=== PATIENT | female | born 1950 | race African-American/Black ===

== ENCOUNTER 2019-07-10 10:39 | Inpatient (IN) | payer MEDICARE, OTHER ==
[~2019-07-10] VITALS: Ht 167.6 cm; Wt 109.3 kg
--- OUTSIDE RECORDS SUMMARY | 2019-07-10 10:41 | XMS REPORT ---
Author Author [facility] Address Unknown Phone Unavailable Care Team Providers Care Medical Assistant Per Diem Name Role Phone CANDIDA MCCOY Unavailable Unavailable Problems This patient has no known problems. Allergies, Adverse Reactions, Alerts This patient has no known allergies or adverse reactions. Medications This patient has no known medications. Results Test Description Test Time Test Comments Text Results Atomic Results Result Comments TISSUE EXAM 2018-07-31 16:08:00 Surgical Pathology Report Case: [id number] Authorizing Provider: Leon Mccoy, Collected: 07/25/2018 0925 Ordering Location: [facility] PERI[facility] Received: 07/25/2018 1006 SERVICES Pathologist: Andi Clark MD Specimen: Thyroid, Total Thyroid - Stitch Bradshaw Right Middle THYROID, TOTAL THYROIDECTOMY: - NODULAR HYPERPLASIA - FOCAL FIBROSIS, CALCIFICATION AND HEMORRHAGE - ONE BENIGN LYMPH NODE IDENTIFIED (0/1) Signing Pathologist Direct Phone Line: [phone] signed by Andi Clark MD on 07/31/2018 at 4:08 [id number], [id number] multinodular goiterTotal thyroid The specimen is received fresh labeled with the patient's information and labeled "total thyroid" and consists of a 17 gm total thyroidectomy with a suture designating the right lobe. The right lobe measures 5.5 x 3 x 1.5 cm. The left lobe measures 6 x 4 x 2 cm, and isthmus measures 1.8 x 2.5 x 0.8 cm.Ink code: Right anterior-red, isthmus anterior-green, left anterior-blue, deep-black.Specimen is serially sectioned from superior to inferior showing a multinodular cut surface throughout the entire specimen. The largest nodule of the entire thyroidectomy measures up to 1 cm in greatest dimension. The right lobe has a superior calcified nodule measuring 1 cm in greatest dimension. The remaining nodules are johnson and hemorrhagic. The calcified nodule is grossly at or near the deep inked surface.Section code: Specimen is entirely submitted as follows: A1-A3, entire calcified nodule submitted for light decal; A4-A11, remainder of right lobe superior to inferior (A4 and A5 one contiguous section, A6 and 7 one contiguous section, A8 and A9 one contiguous section, A10 and 11 one contiguous section); A12, entire isthmus bisected; A13- A245, left lobe superior to inferior (A15 and 16 one contiguous section, A17 and 18 one contiguous section, A19 and 20 one contiguous section, A21 and A22 one contiguous section; A23 and 24 one contiguous section). CG/ewPerformed PTH, INTACT 2018-07-25 10:58:00 PARATHYROID HORMONE INTACT (BEAKER) (test uhwu=319) 85.8 pg/mL 8.5-72.5 [id number] 10:47:00* Test Item Value Reference Range Comments CALCIUM (BEAKER) (test iokp=135) 9.2 mg/dL 8.4-10.2 CBC W/PLT COUNT & AUTO [id number] 08:55:00* Test Item Value Reference Range Comments WHITE BLOOD CELL COUNT (BEAKER) (test tuzu=536) 5.9 K/ L 3.5-10.5 RED BLOOD CELL COUNT (BEAKER) (test srkf=219) 4.09 M/ L 3.93-5.22 HEMOGLOBIN (BEAKER) (test udbg=506) 11.9 GM/DL 11.2-15.7 HEMATOCRIT (BEAKER) (test xelp=673) 37.1 % 34.1-44.9 MEAN CORPUSCULAR VOLUME (BEAKER) (test tgco=479) 90.7 fL 79.4-94.8 MEAN CORPUSCULAR HEMOGLOBIN (BEAKER) (test yrrg=869) 29.1 pg 25.6-32.2 MEAN CORPUSCULAR HEMOGLOBIN CONC (BEAKER) (test fhpv=219) 32.1 GM/DL 32.2-35.5 RED CELL DISTRIBUTION WIDTH (BEAKER) (test hhdl=698) 13.0 % 11.7-14.4 PLATELET COUNT (BEAKER) (test nzmx=003) 307 K/CU MM 150-450 MEAN PLATELET VOLUME (BEAKER) (test bywm=874) 10.4 fL 9.4-12.3 NUCLEATED RED BLOOD CELLS (BEAKER) (test qeir=271) 0 /100 WBC 0-0 NEUTROPHILS RELATIVE PERCENT (BEAKER) (test eogi=939) 66 % LYMPHOCYTES RELATIVE PERCENT (BEAKER) (test dumy=292) 22 % MONOCYTES RELATIVE PERCENT (BEAKER) (test chos=679) 7 % EOSINOPHILS RELATIVE PERCENT (BEAKER) (test mwrk=751) 4 % BASOPHILS RELATIVE PERCENT (BEAKER) (test fvyd=162) 1 % NEUTROPHILS ABSOLUTE COUNT (BEAKER) (test pcuq=288) 3.84 K/ L 1.56-6.13 LYMPHOCYTES ABSOLUTE COUNT (BEAKER) (test znfu=748) 1.28 K/ L 1.18-3.74 MONOCYTES ABSOLUTE COUNT (BEAKER) (test uonu=102) 0.42 K/ L 0.24-0.36 EOSINOPHILS ABSOLUTE COUNT (BEAKER) (test olvi=022) 0.25 K/ L 0.04-0.36 BASOPHILS ABSOLUTE COUNT (BEAKER) (test byjc=708) 0.04 K/ L 0.01-0.08 IMMATURE GRANULOCYTES-RELATIVE PERCENT (BEAKER) (test cyta=5287) 0 % 0-1 POCT-GLUCOSE [id number] 07:58:00* Test Item Value Reference Range Comments POC-GLUCOSE METER (BEAKER) (test pitm=4852) 128 mg/dL 70-[address] [facility] [address] [address]
[2019-07-10] MEDS ORDERED: PREDNISONE 20 MG TAB PO ONE (11:00)
[2019-07-10] MEDS ORDERED: ALBUTEROL/IPRATROPIUM 3 ML NEB NEB ONE (11:00)
[2019-07-10] MEDS ORDERED: LEVOTHYROXINE175 MCG (11:07)
[2019-07-10] MEDS ORDERED: ROSUVASTATIN CAL5 MG (11:07)
[2019-07-10] MEDS ORDERED: TOPIRAMATE25 MG (11:07)
[2019-07-10] MEDS ORDERED: AMLOD-VALSA-HC1 EAC2 (11:07)
[2019-07-10] MEDS ORDERED: VICTOZA 3-0.6 MG/0.1 (11:07)
[2019-07-10] MEDS ORDERED: DULOXETINE HCL60 MG (11:07)
[2019-07-10] MEDS ORDERED: GABAPENTIN300 MG (11:07)
[2019-07-10] MEDS ORDERED: ELIQUIS5 MG (11:07)
[2019-07-10] MEDS ORDERED: LANSOPRAZOLE30 MG (11:07)
[2019-07-10] MEDS ORDERED: LEVOTHYROXINE125 MCG (11:07)
--- NOTE | 2019-07-10 11:08 | NUR ---
medications reviewed with pt
[2019-07-10 11:15] LABS: BASOPHILS % 0.1 % (0.0-1.0); HEMOGLOBIN 13.4 g/dL (12.0-16.0); LYMPHOCYTES # (AUTO) 0.7 (1.0-3.2); LYMPHOCYTES % 6.5 % (18.0-39.1); MEAN CORPUSCULAR HEMOGLOBIN 28.8 pg (28-32); MEAN CORPUSCULAR HGB CONC 32.7 g/dL (31-35); MONOCYTES # (AUTO) 0.7 (0.2-0.8); MONOCYTES % 6.4 % (4.4-11.3); NEUTROPHILS # (AUTO) 9.3 (2.1-6.9); NEUTROPHILS % 86.3 % (38.7-80.0); PLATELET COUNT 250 x10e3/uL (140-360); RED BLOOD COUNT 4.66 x10e6/uL (3.6-5.1); RED CELL DISTRIBUTION WIDTH 13.3 % (11.7-14.4)
[2019-07-10 11:29] LABS: ALBUMIN 3.3 g/dL (3.5-5.0); ALBUMIN/GLOBULIN RATIO 0.8 (0.8-2.0); ANION GAP 17.9 mmol/L (8-16); CALCIUM 9.1 mg/dL (8.4-10.2); CREATININE, SERUM 2.65 mg/dL (0.57-1.11); INR 1.11; MAGNESIUM 1.6 MG/DL (1.3-2.1); PROTHROMBIN TIME 14.8 seconds (11.9-14.5)
[2019-07-10 11:30] LABS: PARTIAL THROMBOPLASTIN TIME 34.9 seconds (23.8-35.5)
--- NOTE | 2019-07-10 11:33 | NUR ---
lab called stating pt is flu a +; james khan notified
[2019-07-10 11:34] LABS: POTASSIUM 2.9 mmol/L (3.5-5.1)
[2019-07-10] MEDS ORDERED: POTASSIUM CHLORIDE 20 MEQ TAB CR PO STA (11:35)
--- NOTE | 2019-07-10 11:35 | NUR ---
adam called stating pt k is 2.9; james khan notified
[2019-07-10 11:36] LABS: CREATINE KINASE MB 3.3 ng/mL (0-5.0)
--- NOTE | 2019-07-10 11:48 | Diagnostic Imaging Report ---
EXAMINATION: Head CT HISTORY: Status post fall the night before, patient on anticoagulation, evaluate for intracranial bleed. Weakness COMPARISON: None. TECHNIQUE: Multidetector axial images were obtained without contrast from the foramen magnum to the vertex . The images were reconstructed using brain and bone algorithms. Thin section brain images were reformatted into coronal and sagittal planes. Image quality: Motion/streaking artifact limits the evaluation of the skull base and posterior cranial fossa. Dose modulation, iterative reconstruction, and/or weight based adjustment of the mA/kV was utilized to reduce the radiation dose to as low as reasonably achievable. FINDINGS: Parenchyma: 1. No abnormal densities. 2. No mass or hemorrhage. No CT evidence of acute territorial vascular insult. Extra-axial spaces:No abnormal density. No extra-axial fluid collections . Left anterior frontal convexity approximately 2 cm calcification may correspond to left frontal bone exostoses versus a calcified meningioma with minimal mass effect upon the underlying left anterior frontal lobe, without abnormal density of the underlying brain parenchyma, unlikely to explain the patient's symptoms. Brain volume: Normal for age. Ventricles: No hydrocephalus or displacement. Arteries: No density suggestive of thrombus. Dural sinuses: No abnormal density. Extra-axial spaces: No abnormal density. Foramen magnum: No mass, Chiari malformation, or basilar invagination. Sella: No obvious mass. Paranasal/mastoid sinuses: Imaged portions unremarkable. Skull/Scalp: No lytic or blastic lesions. No fractures. IMPRESSION: 1. No acute post traumatic intracranial abnormalities, particularly no hemorrhage. 2. Incidentally noted left frontal calcification as detail above. Comparison to prior studies if available is recommended. Signed by: Dr. Amaya Rincon M.D. on 07/10/2019 11:45 AM
[2019-07-10] MEDS ORDERED: SODIUM CHLORIDE 0.9% 1000ML 1,000 ML IV STA ×2 (11:50→11:51)
[2019-07-10] MEDS ORDERED: SODIUM CHLORIDE 0.9% 1000ML 1,000 ML IV ONE (12:00)
[2019-07-10] MEDS ORDERED: POTASSIUM CHLORIDE 10MEQ/100ML 200 ML IV ONE (12:00)
--- NOTE | 2019-07-10 12:03 | Diagnostic Imaging Report ---
EXAMINATION: CHEST SINGLE (PORTABLE) INDICATION: Fall, weakness COMPARISON: None FINDINGS: LINES/TUBES:EKG leads overlie the chest. LUNGS:The lungs are moderately inflated. No focal consolidation or pulmonary edema. PLEURA:No pleural effusion or pneumothorax. MEDIASTINUM:The cardiomediastinal silhouette appears normal in size and shape. BONES/SOFT TISSUES:No acute osseous injury. ABDOMEN:No free air under the diaphragm. IMPRESSION: No focal pneumonia or pulmonary edema. Signed by: Araceli Beckwith MD on 07/10/2019 11:59 AM
[2019-07-10 12:10] LABS: BILIRUBIN,URINE MODERATE (NEGATIVE); CLARITY,URINE CLOUDY (CLEAR); COLOR,URINE YELLOW (YELLOW); KETONES,URINE TRACE (NEGATIVE); LEUKOCYTE ESTERASE ,URINE SMALL (NEGATIVE); NITRITE,URINE NEGATIVE (NEGATIVE); PROTEIN,URINE DIPSTICK 2+ (NEGATIVE); URINE UROBILINOGEN 1 mg/dL (0.2 - 1)
[2019-07-10] MEDS ORDERED: ONDANSETRON HCL INJ 2MG/ML 2ML 2 MG/ML VIAL IV PRN ×2 (12:15→14:00)
[2019-07-10] MEDS ORDERED: ACETAMINOPHEN 325 MG TAB PO PRN ×2 (12:15→14:00)
[2019-07-10] MEDS ORDERED: SODIUM CHLORIDE 0.9% 1000ML 1,000 ML IV SCH (12:15)
[2019-07-10 12:16] LABS: BACTERIA,URINE MANY /HPF; EPITHELIAL CELLS,URINE MANY /LPF; WBC,URINE (MAN) >50 /HPF (0-5); YEAST,URINE MANY
[2019-07-10] MEDS ORDERED: OSELTAMIVIR PHOSPHATE 75 MG CAP PO SCH (12:30)
[2019-07-10] MEDS ORDERED: CEFTRIAXONE SOD 1 GM/NS 50 ML 50 ML IV SCH ×2 (12:45→14:00)
[2019-07-10 13:15] VITALS: BP 130/62
[2019-07-10 13:30] VITALS: BP 130/62
--- NOTE | 2019-07-10 13:30 | NUR ---
Pt received from ER at this time. Pt is aox4 and able to ambulate with moderate assist. Pt denies any pain at this time. 0 s/s of acute distress noted. Pt is currently receiving IVF with a K rider and well tolerated. Skin is intact.
[2019-07-10] MEDS: METOPROLOL TARTRATE 25 MG TAB PO SCH ×3 (13:57→21:14)
[2019-07-10] MEDS: APIXABAN 5 MG TABLET PO SCH ×3 (13:57→21:00)
[2019-07-10 15:16] LABS: ANION GAP 15.1 mmol/L (8-16); CALCIUM 8.6 mg/dL (8.4-10.2); CREATININE, SERUM 2.27 mg/dL (0.57-1.11); POTASSIUM 3.1 mmol/L (3.5-5.1)
[2019-07-10 15:41] LABS: CREATINE KINASE MB 6.6 ng/mL (0-5.0)
[2019-07-10 16:00] VITALS: BP 113/59
[2019-07-10] MEDS: SODIUM CHLORIDE 0.9% 1000ML 1,000 ML IV SCH (16:18)
[2019-07-10] MEDS ORDERED: APIXABAN 5 MG TABLET PO SCH (17:00)
[2019-07-10] MEDS ORDERED: METOPROLOL TARTRATE 25 MG TAB PO SCH ×2 (17:00)
--- NOTE | 2019-07-10 17:10 | NUR ---
Called Dr. Roman to report labs results and states he will call me right back.
--- NOTE | 2019-07-10 18:13 | History and Physical ---
PRIMARY CARE PHYSICIAN: Dr. Micah Engle at [facility]. CHIEF COMPLAINT: Generalized weakness, nausea, vomiting, and fatigue. HISTORY OF PRESENT ILLNESS: This is a 68-year-old female with past medical history of hypertension, atrial fibrillation, high cholesterol, and hypothyroidism. She reports that symptoms initially started 2 days ago, feeling fatigue, generalized weakness, dizziness, nausea with no vomiting, cough productive with body aches. All are flu-like symptoms. 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 Today, she continued to worsen, she has to be wheeled into the exam room, as she was unable to walk. According to the patient, she had a fall last night, did not hit her head. PAST MEDICAL HISTORY: 1. Atrial fibrillation. 2. Hypertension. 3. Hypothyroidism. 4. High cholesterol. 5. Neuropathy of the lower extremities. PAST SURGICAL HISTORY: 1. She reports thyroidectomy. 2. x2 and tonsillectomy. FAMILY MEDICAL HISTORY: Mother had hypertension and father had heart attack. SOCIAL HISTORY: She denies any tobacco, alcohol, or drug use. 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 ALLERGIES: SHE HAS NO KNOWN ALLERGIES. REVIEW OF SYSTEMS: GENERAL: Fatigue, body aches, and general weakness. HEENT: No vision changes. LUNGS: Shortness of breath and productive cough. HEART: Palpitations and dizziness. GI: Nausea with no vomiting and complains of diarrhea. NEURO: Dizziness and generalized weakness. MUSCULOSKELETAL: Moves all extremities, but is weak and body aches. SKIN: Dry. PHYSICAL EXAMINATION: VITAL SIGNS: Temperature 99.0, pulse is 95, respirations 18, blood pressure 126/57, and pulse ox is 100% on 2 L. GENERAL: Fatigue and generalized weakness. HEENT: Normocephalic and atraumatic. NECK: Supple. LUNGS: Decreased breath sounds with some crackles. CARDIOVASCULAR: Tachycardic. GI: Soft and nontender. NEUROLOGIC: Alert, awake, and oriented x3. MUSCULOSKELETAL: Moves all extremities. No edema. SKIN: Dry. PSYCH: Able, calm. LABORATORY DATA: WBC is 10.82, hemoglobin is 13.4, hematocrit is 41.0, and platelet is 250. Sodium is 133, potassium is 2.9, CO2 is 18, creatinine is 2.65, estimated GFR is 18, and glucose is 240. AST is 50. Creatine kinase is 1104. Troponin 0.293. BNP is 81. Magnesium is 1.6. PT 14.8, INR 1.11, and APTT 34.9. Urine cloudy with 2+ protein, trace ketones, small leukocyte esterase with greater than 50,000 wbc's, many bacteria and yeast. Influenza is positive for flu A. IMAGING DATA: CT brain, no acute abnormalities. Chest x-ray, no pneumonia or pulmonary edema noted. IMPRESSION AND PLAN: 1. Influenza A positive. We will continue with IV fluids, Tamiflu started. Neb treatment. We will continue with supportive treatment. 2. Pyuria, likely urinary tract infection. UA noted. We will await on urine cultures. We will start on Rocephin until final cultures come back. 3. Hypokalemia with a potassium of 2.9. Replace and recheck. Magnesium level was 1.6. 4. Dehydration due to poor p.o. intake. Sodium is 133. We will continue with aggressive IV fluid hydration. 5. Acute kidney injury with history of chronic kidney disease. Creatinine is 2.65, was given bolus NS. We will continue with NS 100 mL/h and recheck BMP in a.m. 6. Rhabdomyolysis with a CK of 1104. We will continue with IV fluid hydration and rest. We will continue to trend CK levels. 7. Tachycardia with a history of atrial fibrillation. We will continue Eliquis 5 mg b.i.d. We will start on metoprolol 25 mg p.o. b.i.d. 8. Hypertension, currently stable. We will hold her home dose of Norvasc and HCTZ. 9. Hypothyroidism. We will continue on levothyroxine. 10. History of high cholesterol. We will continue with statin. 11. Deep venous thrombosis prophylaxis. We will continue with Eliquis. Plan is to continue with supportive therapy, IV fluids, Tamiflu, Tylenol p.r.n. for fever, and rest as needed. Further recommendations to follow. Dictated by SAMREEN Murphy Sherin Roman MD MY/MODL /[id number] Seen and examined on 07/10/2019, updated PCP Dr. Engle. Agree with the findings and plan as documented by SAMREEN Sanchez. DYLAN
--- NOTE | 2019-07-10 19:00 | NUR ---
BEDSIDE SHIFT REPORT GIVEN TO THE COURT MONITOR RN. PT DENIED FURTHER NEEDS.
[2019-07-10 20:00] VITALS: BP 98/53
[2019-07-10 20:40] VITALS: BP 98/53
--- NOTE | 2019-07-10 20:40 | NUR ---
PATIENT RESTING IN BED BOTH EYES CLOSED, NO SIGNS OF RESPIRATORY DISTRESS NOTED. IV FLUIDS ARE RUNNING AT ORDERED RATE AND TELE MONITOR IS ATTACHED AND RUNNING AT NORMAL SINUS RHYTHM. BED IS LOCKED AND IN LOWEST POSITION POSSIBLE, BOTH SIDE RAILS ARE UP, CALL LIGHT WITHIN EASY REACH, WILL CONTINUE TO MONITOR.
[2019-07-10] MEDS: CEFTRIAXONE SOD 1 GM/NS 50 ML 50 ML IV SCH (20:45)
[2019-07-10] MEDS: ATORVASTATIN 10 MG TAB PO SCH (20:45)
[2019-07-10] MEDS: OSELTAMIVIR PHOSPHATE 75 MG CAP PO SCH (20:45)
[2019-07-11] VITALS (8 sets, daily range): BP systolic 105–126; BP diastolic 56–62
[2019-07-11] MEDS: SODIUM CHLORIDE 0.9% 1000ML 1,000 ML IV SCH ×3 (04:45→16:27)
[2019-07-11 05:39] LABS: BASOPHILS % 0.2 % (0.0-1.0); HEMATOCRIT 37.6 % (34.2-44.1); HEMOGLOBIN 12.1 g/dL (12.0-16.0); LYMPHOCYTES % 10.5 % (18.0-39.1); MEAN CORPUSCULAR HEMOGLOBIN 28.7 pg (28-32); MEAN CORPUSCULAR HGB CONC 32.2 g/dL (31-35); MEAN CORPUSCULAR VOLUME 89.3 fL (81-99); MONOCYTES # (AUTO) 0.6 (0.2-0.8); MONOCYTES % 5.5 % (4.4-11.3); NEUTROPHILS # (AUTO) 8.2 (2.1-6.9); NEUTROPHILS % 82.7 % (38.7-80.0); PLATELET COUNT 220 x10e3/uL (140-360); RED BLOOD COUNT 4.21 x10e6/uL (3.6-5.1); RED CELL DISTRIBUTION WIDTH 13.3 % (11.7-14.4)
[2019-07-11] MEDS ORDERED: LEVOTHYROXINE SODIUM 125 MCG TAB PO SCH (06:00)
[2019-07-11 06:02] LABS: ANION GAP 12.8 mmol/L (8-16); CREATININE, SERUM 1.85 mg/dL (0.57-1.11); POTASSIUM 3.8 mmol/L (3.5-5.1)
[2019-07-11] MEDS: LEVOTHYROXINE SODIUM 125 MCG TAB PO SCH (06:38)
--- NOTE | 2019-07-11 07:00 | NUR ---
BEDSIDE SHIFT REPORT RECEIVED FROM THE [employer] SWEATER OPERATOR RN. EDUCATED PT ABOUT FALL PRECAUTIONS. CALL LIGHT WITH IN EASY REACH. INSTRUCTED PT TO USE CALL LIGHT FOR ALL THE NEEDS. PT VERBALIZED UNDERSTANDING. BED IS LOW AND LOCKED. SIDE RAILS X2. PT DENIES NEEDS AT THIS TIME.
[2019-07-11] MEDS: OSELTAMIVIR PHOSPHATE 75 MG CAP PO SCH ×2 (09:11→21:55)
[2019-07-11] MEDS: APIXABAN 5 MG TABLET PO SCH ×2 (09:11→16:27)
[2019-07-11] MEDS: METOPROLOL TARTRATE 25 MG TAB PO SCH ×2 (11:42→16:25)
[2019-07-11] MEDS ORDERED: ONDANSETRON HCL 4 MG ORAL DISINTEGRATING TAB PO PRN (16:30)
--- NOTE | 2019-07-11 17:29 | Progress Note ---
DATE: 07/11/2019 CONSULT: None. CHIEF COMPLAINT: Generalized weakness, nausea, vomiting, and cough. SUBJECTIVE: The patient reports she is feeling little bit better overall. Denies any nausea, vomiting, shortness of breath, fever, diarrhea. She still reports body aches and dizziness when getting up, but overall improving. PHYSICAL EXAMINATION: VITAL SIGNS: Temperature is 95.9, pulse 64, respirations 18, blood pressure 123/59, and pulse ox is 98% on room air. GENERAL: No acute distress, fatigue, and generalized weakness. HEENT: Normocephalic, atraumatic. NECK: Supple. LUNGS: Decreased breath sounds. CARDIOVASCULAR: Regular rate and rhythm. GI: Soft and nontender. NEUROLOGIC: Alert, awake, and oriented x3. MUSCULOSKELETAL: Moves all extremities. EXTREMITIES: No edema. SKIN: Dry. PSYCH: Calm. LABORATORY DATA: WBC 9.91, hemoglobin 12.1, hematocrit 37.6, platelets 220. Sodium is 137, potassium 3.8, CO2 of 22, creatinine is 1.85. Estimated GFR is 33. CK is 1734. MICROBIOLOGY: Blood cultures have been negative so far. Urine culture is positive for gram-negative rods. IMPRESSION: 1. Influenza A positive. Continue Tamiflu, supportive care with IV fluids and Tylenol for fever. 2. Urinary tract infection. Urine culture positive for gram-negative rods. We will continue with Rocephin until final cultures come back. 3. Hypokalemia, now resolved. 4. Acute kidney injury with history of chronic kidney disease. Likely due to dehydration and poor p.o. intake. Improving with IV fluids. 5. Dehydration. Likely due to poor p.o. intake and fever, nausea, vomiting, and diarrhea. Diarrhea and nausea and resolved. We will continue with IV fluids. 6. Rhabdomyolysis. Likely due to dehydration. CK is 1730. We will continue with aggressive IV fluid hydration and trend CK. 7. Hypertension, currently stable. We will continue to hold Norvasc and HCTZ and continue beta blockers. 8. Hypothyroidism. We will continue levothyroxine. 9. History of hyperlipidemia. We will continue on statin. 10. Deep vein thrombosis prophylaxis. We will continue on Eliquis. 11. History of atrial fibrillation. We will continue on metoprolol and Eliquis for CVA prophylaxis. Dictated by Ca Sanchez, SAMREEN Radhaching MD [facility]/MODL /[id number] Seen and examined on 07/11/19. Agree with the findings and plan as documented by SAMREEN Sanchez. LAITHD
--- NOTE | 2019-07-11 19:00 | NUR ---
BEDSIDE SHIFT REPORT GIVEN TO THE MANAGER TRAINING AND DEVELOPMENT RN. PT DENIED FURTHER NEEDS.
[2019-07-11] MEDS: ATORVASTATIN 10 MG TAB PO SCH (21:55)
[2019-07-11] MEDS: CEFTRIAXONE SOD 1 GM/NS 50 ML 50 ML IV SCH (21:55)
[2019-07-12] VITALS (8 sets, daily range): BP systolic 114–133; BP diastolic 56–60
[2019-07-12] MEDS: SODIUM CHLORIDE 0.9% 1000ML 1,000 ML IV SCH ×3 (01:48→20:05)
[2019-07-12] MEDS: LEVOTHYROXINE SODIUM 125 MCG TAB PO SCH (06:30)
[2019-07-12 06:47] LABS: ANION GAP 11.7 mmol/L (8-16); CALCIUM 8.2 mg/dL (8.4-10.2); CREATININE, SERUM 1.32 mg/dL (0.57-1.11); POTASSIUM 3.7 mmol/L (3.5-5.1)
--- NOTE | 2019-07-12 06:52 | NUR ---
RECEIVED BEDSIDE SHIFT REPORT FROM OFF GOING NURSE. PATIENT IS RESTING IN BED. NO S/S OF DISTRESS NOTED. CALL LIGHT WITHIN REACH. BED IN THE LOWEST POSITION.
[2019-07-12] MEDS: METOPROLOL TARTRATE 25 MG TAB PO SCH ×2 (07:59→16:35)
[2019-07-12] MEDS: OSELTAMIVIR PHOSPHATE 75 MG CAP PO SCH ×2 (08:25→20:05)
[2019-07-12] MEDS: APIXABAN 5 MG TABLET PO SCH ×2 (08:25→16:35)
[2019-07-12] MEDS: DULOXETINE HCL 30 MG DELAYED RELEASE PO SCH (14:39)
--- NOTE | 2019-07-12 14:53 | Progress Note ---
DATE: 07/12/2019 CHIEF COMPLAINT: Generalized weakness, nausea, vomiting, and cough. SUBJECTIVE: The patient is resting in bed with no acute distress. She remains afebrile, but reports having generalized weakness and productive cough. She is eating better and encouraged to increase her fluid intake. PHYSICAL EXAMINATION: VITAL SIGNS: Temperature 97.6, pulse is 53, respirations 18, blood pressure 117/56, pulse ox is 98% on room air. GENERAL: No acute distress. Generalized weakness and fatigue. HEENT: Normocephalic, atraumatic. NECK: Supple. LUNGS: Decreased breath sounds. CARDIOVASCULAR: Regular rate and rhythm. GI: Soft and tender. NEUROLOGIC: Alert, awake, oriented x3. MUSCULOSKELETAL: Moves all extremities. No edema noted. SKIN: Dry. PSYCH: Calm. LABORATORY DATA: Sodium is 141, potassium is 3.7, chloride 110, BUN is 26, creatinine is 1.32. Estimated GFR is 49, calcium is 8.2. Creatine kinase is 1854. Urine culture is positive for Escherichia coli, sensitive to Rocephin. Blood cultures are negative. IMPRESSION AND PLAN: 1. Influenza A positive. Continue Tamiflu, IV fluids and Tylenol for fever. Encourage rest and p.o. fluid. 2. Urinary tract infection. Continue with Rocephin, urine culture is positive for Escherichia coli. 3. Hypokalemia, now resolved. 4. Acute kidney injury with history of chronic kidney disease, improving. We will continue with IV fluids and p.o. encouraged. 5. Acute rhabdomyolysis due to dehydration. CK is up 1854. We will continue with IV fluids and trend CK. 6. Hypertension, currently stable. We will continue to hold Norvasc and HCTZ. 7. History of atrial fibrillation. We will continue with beta-blockers and Eliquis for CVA prophylaxis. 8. Hypothyroidism. Continue levothyroxine. 9. Hyperlipidemia. Continue on statin. 10. Depression. Restart Cymbalta 60 mg daily. 11. Deep vein thrombosis prophylaxis. Continue Eliquis. Dictated by SAMREEN Murphy Radhaching Yohan Roman MD MY/MODL /[id number] Seen and examined, Agree with the findings and plan as documented by SAMREEN Sanchez. DYLAN
--- NOTE | 2019-07-12 19:04 | NUR ---
Bedside shift report given to oncoming nurse. Patient is resting in bed. No acute distress noted. Denies pain or discomfort at this time. Call light within reach. Bed in the lowest position.
[2019-07-12] MEDS: CEFTRIAXONE SOD 1 GM/NS 50 ML 50 ML IV SCH (19:19)
[2019-07-12] MEDS: ATORVASTATIN 10 MG TAB PO SCH (20:05)
[2019-07-13] VITALS: BP 133/63
[2019-07-13 04:00] VITALS: BP 119/55
[2019-07-13] MEDS: LEVOTHYROXINE SODIUM 125 MCG TAB PO SCH (05:17)
[2019-07-13 06:47] LABS: ANION GAP 11.3 mmol/L (8-16); CREATININE, SERUM 1.1 mg/dL (0.57-1.11); POTASSIUM 3.3 mmol/L (3.5-5.1)
--- NOTE | 2019-07-13 06:50 | NUR ---
Received patient lying in bed with eyes closed. Respiration even and unlabored without SOB. Call light in reach.
[2019-07-13 07:38] VITALS: BP 131/59
[2019-07-13] MEDS: APIXABAN 5 MG TABLET PO SCH (08:32)
[2019-07-13] MEDS: DULOXETINE HCL 30 MG DELAYED RELEASE PO SCH (08:32)
[2019-07-13] MEDS: OSELTAMIVIR PHOSPHATE 75 MG CAP PO SCH (08:33)
[2019-07-13] MEDS: METOPROLOL TARTRATE 25 MG TAB PO SCH (08:33)
[2019-07-13 10:06] VITALS: BP 131/89
[2019-07-13] MEDS: SODIUM CHLORIDE 0.9% 1000ML 1,000 ML IV SCH (12:08)
[2019-07-13] MEDS ORDERED: TAMIFLU75 MG PO (12:15)
[2019-07-13] MEDS ORDERED: CIPRO500 MG PO (12:15)
[2019-07-13 12:42] VITALS: BP 132/64
--- NOTE | 2019-07-13 13:37 | Discharge Summary ---
PRIMARY CARE PHYSICIAN: Dr. Micah Engle at [facility] in [place]. FINAL DISCHARGE DIAGNOSES: 1. Sepsis due to influenza A positive and urinary tract infection. 2. Urinary tract infection. 3. Hypokalemia. 4. Dehydration with rhabdomyolysis. 5. Acute kidney injury due to poor p.o. intake. 6. Tachycardia with history of atrial fibrillation. 7. Hypertension. 8. Hypothyroidism. 9. High cholesterol. CONSULTANTS: None. PROCEDURE: None. HISTORY: Per HPI. HOSPITAL COURSE: This is a 69-year-old female, who presented with a few days of generalized weakness, nausea, vomiting, body aches, and cough. She was admitted for sepsis due to influenza A positive and urinary tract infection. Cultures were sent, and she was started on IV antibiotics, cough medication, and Tamiflu for the flu. Urine culture was positive for E. coli. She was started on Rocephin per sensitivity. Chest x-ray showed no focal pneumonia or pulmonary edema. CT brain was unremarkable for acute changes. Potassium was replaced. She was given one aggressive IV fluid hydration. Creatine kinase was elevated initially and trended down with aggressive IV fluids. Today, she is feeling much better, afebrile, kidney function is back to normal. She is drinking and eating with no nausea or vomiting. No fever. Today, she will be discharged home to continue her medication and follow up with her PCP in 1 to 2 weeks. PHYSICAL EXAMINATION: VITAL SIGNS: Temperature is 97.5, pulse is 51, respirations 18, blood pressure 131/89, and pulse ox is 99% on room air. GENERAL: No acute distress. HEENT: Normocephalic and atraumatic. NECK: Supple. LUNGS: Clear to auscultation. CARDIOVASCULAR: Regular rate and rhythm. Sinus bradycardia at times. GI: Soft and nontender. NEUROLOGIC: Alert, awake, and oriented x3. MUSCULOSKELETAL: Moves all extremities. No edema. SKIN: Dry. PSYCH: Calm. CONDITION AT DISCHARGE: Improved and stable. DISCHARGE MEDICATIONS: See medication reconciliation list. FOLLOWUP: Follow up with PCP and Cardiology per appointment. TIME SPENT: Total time of discharge is 35 minutes. Dictated by SAMREEN Murphy Sherin Roman MD MY/MODL /[id number] cc: Dr. Micah Engle [facility] Seen and examined, updated PCP. Agree with the findings and plan as documented by SAMREEN Sanchez. LAITHD
--- NOTE | 2019-07-13 14:00 | NUR ---
PIV TO LEFT AC DISCONTINUED. CATHETER TIP INTACT, NO BLEEDING NOTED.
--- NOTE | 2019-07-13 15:10 | NUR ---
Transported patient via wheelchair to private vehicle. Patient is to discharge to home today as ordered. All personal belongings are taken by the patient.
== END 2019-07-13 15:37 | disposition home or self-care (01) | DRG 872 ==
LOC: ER 10:39 → PACU V 12:56 → UNDOADMIN 12:56 → ERHOLD 12:58 → MED/SURG3 13:07
PROVIDERS: ADMIT Internal Medicine; ATTEND Internal Medicine
DX: A41.9 Sepsis, unspecified organism (principal); N39.0 Urinary tract infection, site not specified; N17.9 Acute kidney failure, unspecified; M62.82 Rhabdomyolysis; J09.X2 Influenza due to identified novel influenza A virus with other respiratory manifestations; N18.9 Chronic kidney disease, unspecified; R00.0 Tachycardia, unspecified; E87.6 Hypokalemia; E86.0 Dehydration; I48.91 Unspecified atrial fibrillation; I12.9 Hypertensive chronic kidney disease with stage 1 through stage 4 chronic kidney disease, or unspecified chronic kidney disease; E78.00 Pure hypercholesterolemia, unspecified; G62.9 Polyneuropathy, unspecified; E89.0 Postprocedural hypothyroidism; Z82.49 Family history of ischemic heart disease and other diseases of the circulatory system; B96.20 Unspecified Escherichia coli [E. coli] as the cause of diseases classified elsewhere
CPT/HCPCS: 36415; 70450; 71045; 80048; 80053; 81001; 82550; 82553; 83036; 83735; 83880; 84443; 84484; 85025; 85610; 85730; 87040; 87071; 87086; 87186; 87205; 87400; 93005; 94640; 99284; J0696; J3480; J7030; J7512

== ENCOUNTER 2022-05-13 14:22 | Emergency (ER) | payer MEDICARE, OTHER ==
[~2022-05-13] VITALS: Ht 167.6 cm; Wt 123.8 kg
[~2022-05-13 14:22] MED LIST: AMLOD-VALSA-HC1 EAC2; CIPRO500 MG PO; DULOXETINE HCL60 MG; ELIQUIS5 MG; GABAPENTIN300 MG; LANSOPRAZOLE30 MG; LEVOTHYROXINE125 MCG; LEVOTHYROXINE175 MCG; ROSUVASTATIN CAL5 MG; TAMIFLU75 MG PO; TOPIRAMATE25 MG; VICTOZA 3-0.6 MG/0.1
[2022-05-13] MEDS ORDERED: CALCET TABLET1 EACH PO (14:44)
[2022-05-13] MEDS ORDERED: FLAX SEED OIL1 EACH (14:44)
[2022-05-13] MEDS ORDERED: AMLODIPINE BESY10 MG PO (14:44)
[2022-05-13] MEDS ORDERED: XARELTO10 MG PO (14:44)
[2022-05-13] MEDS ORDERED: ULTRAM 50MG50 MG PO (15:53)
== END 2022-05-13 16:12 | disposition home or self-care (01) ==
LOC: FSED 14:27
DX: M25.562 Pain in left knee (principal); M17.12 Unilateral primary osteoarthritis, left knee; W01.0XXA Fall on same level from slipping, tripping and stumbling without subsequent striking against object, initial encounter; Y93.01 Activity, walking, marching and hiking; Y92.89 Other specified places as the place of occurrence of the external cause; I10 Essential (primary) hypertension; E11.40 Type 2 diabetes mellitus with diabetic neuropathy, unspecified; I48.91 Unspecified atrial fibrillation; E03.9 Hypothyroidism, unspecified; E78.5 Hyperlipidemia, unspecified; K21.9 Gastro-esophageal reflux disease without esophagitis; F32.A Depression, unspecified; D68.9 Coagulation defect, unspecified
CPT/HCPCS: 99283